=== PATIENT | female | born 2000 | race Caucasian/White ===

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

== ENCOUNTER 2020-09-03 10:44 | Emergency (ER) | payer OTHER ==
--- NOTE | 2020-09-03 10:49 | EDM.PDOC ---
ED HPI GENERAL MEDICAL PROBLEM - General Stated Complaint: NOT FEELING WELL Time Seen by Provider: 09/03/20 10:46 Source of Information: Reports: Patient History Limitations: Reports: No Limitations - History of Present Illness INITIAL COMMENTS - FREE TEXT/NARRATIVE: HISTORY AND PHYSICAL: History of present illness: Patient is a 20-year-old female who presents to the emergency room with complaints of body aches, sinus congestion/pressure, bilateral ear pain and generally feeling unwell over the past 5 days. Patient denies any fever, chills, change in vision, syncope or near syncope. Denies any chest pain, back pain, shortness of breath or cough. Denies any abdominal pain, nausea, vomiting, diarrhea, constipation or dysuria. No concerns of . Patient has been eating and drinking appropriately. Review of systems: As per history of present illness and below otherwise all systems reviewed and negative. Past medical history: As per history of present illness and as reviewed below otherwise noncontributory. Surgical history: As per history of present illness and as reviewed below otherwise noncontributory. Social history: See social history for further information Family history: As per history of present illness and as reviewed below otherwise noncontributory. Physical exam: General: Well developed and well nourished. Alert and orientated x 3. Nontoxic in appearance and in no acute distress. Vital signs are stable and have been reviewed by me. Nursing notes were reviewed. HEENT: Atraumatic, normocephalic, pupils equal and reactive bilaterally, negative for conjunctival pallor or scleral icterus, mucous membranes moist, TMs normal bilaterally, throat clear, neck supple, nontender, trachea midline. No drooling or trismus noted. No meningeal signs. No hot potato voice noted. Lungs: Clear to auscultation, breath sounds equal bilaterally, chest nontender. Normal work of breathing, no accessory muscles used. Heart: S1S2, regular rate and rhythm without overt murmur Abdomen: Soft, nondistended, nontender. Skin: Intact, warm, dry. No lesions or rashes noted. Hematologic: No petechiae or purpra. Mucosa appropriate color and normal nail bed color and refill. Extremities: Atraumatic, moves all extremities per self without difficulty or deficits, negative for cords or calf pain. Neurovascular unremarkable. Neuro: Awake, alert, oriented. Cranial nerves II through XII unremarkable. Cerebellum unremarkable. Motor and sensory unremarkable throughout. Exam nonfocal. Psychiatric: Mood and affect are appropriate. Normal thought process. Answering questions appropriately. Notes: Positive for smith virus. I have spoken with the patient/caregiver and discussed today's findings, in addition to providing specific details for plan of care. Reassessment at the time of disposition demonstrates that the patient is in no acute distress. The patient has remained stable throughout the entire ED visit and is without objective evidence for acute process requiring urgent intervention or hospitalization. The patient is stable for discharge, counseling was provided and we discussed in great detail signs and symptoms that would prompt them to return to the Emergency Department. Medication, follow up and supportive care measures were reviewed and discussed. Voices understanding and is agreeable to plan of care. Denies any further questions or concerns at this time. Diagnostics: COVID Therapeutics: None Prescription: None Impression: COVID-19 Plan: 1. Your COVID-19 screening is positive. That means you do have the coronavirus and are considered contagious. Your vital signs and oxygen saturation are well enough that you were able to monitor your symptoms at home. Continue to monitor for trouble breathing, new confusion or inability to arouse, bluish lips or face or any of the other symptoms we discussed -if this occurs please return to the emergency room. 2. Please self quarantine over the next 2 weeks. Inform any persons that you have been in contact with since you started becoming symptomatic that you have tested positive; they should be made aware and take the appropriate steps as needed. 3. You can take NyQuil during the evening to help get a restful night sleep. 4. You may alternate Tylenol and ibuprofen as needed for pain and fever management. 5. The [facility] will be calling you and following up with you. The [place] COVID 19 Hotline phone number , They are open Monday - Monday 7am - 7pm. Follow up with your primary care provider for re-evaluation and re-testing after the 2 week quarantine and discuss when you should be seen. Definitive disposition and diagnosis as appropriate pending reevaluation and review of above. 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 Musculoskeletal History: Reports: None Neurological History: Reports: None Psychiatric History: Reports: None Endocrine/Metabolic History: Reports: None Hematologic History: Reports: None Immunologic History: Reports: None Oncologic (Cancer) History: Reports: None Dermatologic History: Reports: None - Infectious Disease History Infectious Disease History: Reports: None - Past Surgical History Head Surgeries/Procedures: Reports: None Social & Family History - Family History Family Medical History: Noncontributory - Caffeine Use Caffeine Use: Reports: Coffee ED ROS ENT - Review of Systems Review Of Systems: Comprehensive ROS is negative, except as noted in HPI. ED EXAM, ENT - Physical Exam Exam: See Below (See dictation) Course - Vital Signs Last Recorded V/S: Last Vital Signs Temp 97.3 F 09/03/20 11:22 Pulse 82 09/03/20 11:22 Resp 16 09/03/20 11:22 BP 104/66 09/03/20 11:22 Pulse Ox 98 09/03/20 11:22 - Orders/Labs/Meds Orders: Active Orders 24 hr Category Date Time Status CORONAVIRUS COVID-19 PCR PHL Stat Lab 09/03/20 11:10 Received Labs: Laboratory Tests 09/03/20 Range/Units 11:10 SARS CoV-2 RNA Rapid GERONIMO POSITIVE H (NEGATIVE) Departure - Departure Time of Disposition: 11:45 Disposition: Home, Self-Care 01 Clinical Impression: COVID-19 - Discharge Information Instructions: COVID-19 Referrals: PCP,None [Primary Care Provider] - Forms: ED Department Discharge Additional Instructions: The following information is given to patients seen in the emergency department who are being discharged to home. This information is to outline your options for follow-up care. We provide all patients seen in our emergency department with a follow-up referral. The need for follow-up, as well as the timing and circumstances, are variable depending upon the specifics of your emergency department visit. If you don't have a primary care physician on staff, we will provide you with a referral. We always advise you to contact your personal physician following an emergency department visit to inform them of the circumstance of the visit and for follow-up with them and/or the need for any referrals to a consulting specialist. The emergency department will also refer you to a specialist when appropriate. This referral assures that you have the opportunity for follow-up care with a specialist. All of these measure are taken in an effort to provide you with optimal care, which includes your follow-up. Under all circumstances we always encourage you to contact your private physician who remains a resource for coordinating your care. When calling for follow-up care, please make the office aware that this follow-up is from your recent emergency room visit. If for any reason you are refused follow-up, please contact the [facility] Emergency Department at and asked to speak to the emergency department charge nurse. [facility] [address] [place] [id number] [address] [address] Thank you for choosing the [facility] emergency department in [place] for your medical needs today. It was a pleasure caring for you. Today you were seen in the emergency department for sinus pressure/headache. 1. Your COVID-19 screening is positive. That means you do have the coronavirus and are considered contagious. Your vital signs and oxygen saturation are well enough that you were able to monitor your symptoms at home. Continue to monitor for trouble breathing, new confusion or inability to arouse, bluish lips or face or any of the other symptoms we discussed -if this occurs please return to the emergency room. 2. Please self quarantine over the next 2 weeks. Inform any persons that you have been in contact with since you started becoming symptomatic that you have tested positive; they should be made aware and take the appropriate steps as needed. 3. You can take NyQuil during the evening to help get a restful night sleep. 4. You may alternate Tylenol and ibuprofen as needed for pain and fever management. 5. The [facility] will be calling you and following up with you. The [place] COVID 19 Hotline phone number , They are open Monday - Monday 7am - 7pm. Follow up with your primary care provider for re-evaluation and re-testing after the 2 week quarantine and discuss when you should be seen. Sepsis Event Note (ED) - Focused Exam Vital Signs: Vital Signs Temp Pulse Resp BP Pulse Ox 09/03/20 11:22 97.3 F 82 16 104/66 98 - My Orders Last 24 Hours: My Active Orders 09/03/20 11:10 CORONAVIRUS COVID-19 PCR [facility] Stat - Assessment/Plan Last 24 Hours: My Active Orders 09/03/20 11:10 CORONAVIRUS COVID-19 PCR PHL Stat
[2020-09-03 14:33] VITALS: BP 114/77; PULSE 92
== END 2020-09-03 11:50 | disposition home or self-care (01) ==
LOC: MW.ED 10:44
DX: U07.1 COVID-19 (principal)
CPT/HCPCS: 99282; 99283; U0002

== ENCOUNTER 2021-09-23 10:13 | Emergency (ER) | payer OTHER ==
[2021-09-23] MEDS ORDERED: Ketorolac 30 MG/ML SDV IVPUSH ONE (10:29)
[2021-09-23] MEDS ORDERED: Ondansetron 4 MG/2 ML SDV IVPUSH ONE (10:29)
--- NOTE | 2021-09-23 11:07 | EDM.PDOC ---
ED HPI GENERAL MEDICAL PROBLEM - General Chief Complaint: Headache Stated Complaint: vomiting and a headache for 2 weeks now Time Seen by Provider: 09/23/21 10:20 Source of Information: Reports: Patient History Limitations: Reports: No Limitations - History of Present Illness INITIAL COMMENTS - FREE TEXT/NARRATIVE: HISTORY AND PHYSICAL: History of present illness: Patient is a 21-year-old female who presents to the emergency room with complaints of generalized headache, nausea, vomiting and upset stomach x2 weeks. She states this does feel similar to when she had COVID-19 a year ago. She has tried [id number] Tylenol for headache, has not improved symptoms. Patient denies any fever, chills, change in vision, syncope or near syncope. Denies any chest pain, back pain, shortness of breath or cough. Denies any diarrhea, constipation or dysuria. Has not noted any blood in urine or stool. Patient has been eating and drinking appropriately. No recent travel or sick contacts. Review of systems: As per history of present illness and below otherwise all systems reviewed and negative. Past medical history: As per history of present illness and as reviewed below otherwise noncontributory. Surgical history: As per history of present illness and as reviewed below otherwise noncontributory. Social history: See social history for further information Family history: As per history of present illness and as reviewed below otherwise noncontributory. Physical exam: General: Well developed and well nourished 21-year-old female. Alert and orientated x 3. Nontoxic in appearance and in no acute distress. Vital signs are stable and have been reviewed by me. Nursing notes were reviewed. HEENT: Atraumatic, normocephalic, pupils equal and reactive bilaterally, negative for conjunctival pallor or scleral icterus, mucous membranes moist, TMs normal bilaterally, throat clear, neck supple, nontender, trachea midline. No drooling or trismus noted. No meningeal signs. No hot potato voice noted. Lungs: Clear to auscultation bilaterally. No wheezes, rales, or rhonchi. Chest nontender. Normal work of breathing, no accessory muscles used. Heart: S1S2, regular rate and rhythm without overt murmur, gallops, or rubs. No JVD. No peripheral edema Abdomen: Soft, nondistended, nontender. Normoactive bowel sounds. Negative for masses or costovertebral tenderness. Skin: Intact, warm, dry. No lesions or rashes noted. Hematologic: No petechiae or purpra. Mucosa appropriate color and normal nail bed color and refill. Extremities: Atraumatic, moves all extremities per self without difficulty or deficits, negative for cords or calf pain. Neurovascular unremarkable. Neuro: Awake, alert, oriented. Cranial nerves II through XII unremarkable. Cerebellum unremarkable. Motor and sensory unremarkable throughout. Exam nonfocal. Psychiatric: Mood and affect are appropriate. Normal thought process. Answering questions appropriately. Please note that the patient was seen and evaluated during the 2019 SARS-CoV-2 novel coronavirus pandemic period. Community viral transmission is ongoing at time of this encounter and the emergency department is operating under pandemic response procedures. Medical Decision Making: Patient is a 21-year-old female who presents to the emergency room with complaints of headache, nausea, vomiting and upset stomach over the past 2 weeks. She states symptoms do feel similar to when she had COVID-19 approximately 1 year ago. She has been trying Tylenol [id number] without much relief. Physical exam shows a nonacute abdomen, nontender to touch. Symptoms appear to be related to migraine headache. We will do basic lab work, COVID-19 testing. She does not describe this headache as the worst headache of her life, declines wanting a head CT. Lab work is unremarkable. Her significant other who is at bedside states that their heater did go out last week and is concerned about carbon monoxide poisoning as they have been using a small space heater to keep it warm. We will add carboxyhemoglobin onto labs although suspicion is low. Carboxyhemoglobin is negative. Headache is somewhat better. She now does mention that she has not been using her control over the past 2 weeks and feels this could be hormonal fluctuation. We will give her a as needed medication for migraines if this persists. I have talked with the patient about today's findings, in addition to providing specific details for plan of care. Reassessment at the time of disposition demonstrates that the patient is in no acute distress. The patient is stable for discharge, counseling was provided and we discussed in great detail signs and symptoms that would prompt them to return to the Emergency Department. Medication, follow up and supportive care measures were reviewed and discussed. Voices understanding and is agreeable to plan of care. Denies any further questions or concerns at this time. Diagnostics: CBC, CMP, UA, urine , carboxyhemoglobin, COVID-19 Therapeutics: IV fluid, Zofran, Toradol, Ativan Prescription: Butalbital No. 8 Impression: Migraine Headache Plan: 1. You were evaluated today on an emergent basis. Your lab work is within normal limits. Please rest the remainder of the day. You can take the Butabutol as directed. This medication may cause drowsiness, so do not take it while driving or needing to be functioning outside the house. 2. You can alternate Tylenol and ibuprofen as needed for pain and fever management. 3. We encourage you to follow up with your primary care provider and/or recommended specialist in the next few days for re-evaluation and further care/management. 4. If your symptoms should worsen, new symptoms develop or any of the signs and symptoms we discussed should arise please return to the emergency room or call 911 (if needed). Definitive disposition and diagnosis as appropriate pending reevaluation and review of above. headache Pain Score (Numeric/FACES): 8 - Related Data Allergies Allergy/AdvReac Type Severity Reaction Status Date / Time No Known Allergies Allergy Verified 09/23/21 10:29 Home Meds: Home Meds Control Pills 1 tab PO DAILY 08/26/17 [History] Butalbit/Acetamin/Caff/Codeine [Ussblp-Buvk-Gznfuygmhkg-Codein] 1 each PO Q4HR PRN #8 capsule 09/23/21 [Rx] Ondansetron [Zofran ODT] 4 mg PO Q6H PRN #8 tab.dis 09/23/21 [Rx] Past Medical History - Past Health History Medical/Surgical History: Denies Medical/Surgical History HEENT History: Reports: None Cardiovascular History: Reports: None Respiratory History: Reports: None Gastrointestinal History: Reports: None Genitourinary History: Reports: None [employer] History: Reports: None Musculoskeletal History: Reports: None Neurological History: Reports: None Psychiatric History: Reports: None Endocrine/Metabolic History: Reports: None Hematologic History: Reports: None Immunologic History: Reports: None Oncologic (Cancer) History: Reports: None Dermatologic History: Reports: None - Infectious Disease History Infectious Disease History: Reports: None - Past Surgical History Head Surgeries/Procedures: Reports: None Social & Family History - Family History Family Medical History: No Pertinent Family History - Tobacco Use Tobacco Use Status *Q: Never Tobacco User Second Hand Smoke Exposure: No - Caffeine Use Caffeine Use: Reports: Coffee - Recreational Drug Use Recreational Drug Use: No ED ROS GENERAL - Review of Systems Review Of Systems: Comprehensive ROS is negative, except as noted in HPI. - Physical Exam Exam: See Below (See dictation) Course - Vital Signs Last Recorded V/S: Last Vital Signs Temp 97 F 09/23/21 12:43 Pulse 66 09/23/21 12:43 Resp 15 09/23/21 12:43 BP 93/53 L 09/23/21 12:43 Pulse Ox 99 09/23/21 12:43 - Orders/Labs/Meds Orders: Active Orders 24 hr Category Date Time Status CULTURE URINE [MREF] Stat Lab 09/23/21 10:40 Received Labs: Laboratory Tests 09/23/21 09/23/21 09/23/21 Range/Units 10:40 10:40 10:49 WBC 9.61 (4.0-11.0) K/uL RBC 4.81 (4.30-5.90) M/uL Hgb 14.3 (12.0-16.0) g/dL Hct 42.0 (36.0-46.0) % MCV 87.3 (80.0-98.0) fL MCH 29.7 (27.0-32.0) pg MCHC 34.0 (31.0-37.0) g/dL RDW Std Deviation 41.0 (28.0-62.0) fl RDW Coeff of Lina 13 (11.0-15.0) % Plt Count 303 (150-400) K/uL MPV 10.30 (7.40-12.00) fL Neut % (Auto) 71.7 (48.0-80.0) % Lymph % (Auto) 21.5 (16.0-40.0) % [place] % (Auto) 5.3 (0.0-15.0) % Eos % (Auto) 1.1 (0.0-7.0) % Baso % (Auto) 0.4 (0.0-1.5) % Neut # (Auto) 6.9 H (1.4-5.7) K/uL Lymph # (Auto) 2.1 (0.6-2.4) K/uL [place] # (Auto) 0.5 (0.0-0.8) K/uL Eos # (Auto) 0.1 (0.0-0.7) K/uL Baso # (Auto) 0.0 (0.0-0.1) K/uL Nucleated RBC % 0.0 /100WBC Nucleated RBCs # 0 K/uL ABG Carboxyhemoglobin (0-15) % Sodium (136-145) mmol/L Potassium (3.5-5.1) mmol/L Chloride (98-107) mmol/L Carbon Dioxide (21.0-32.0) mmol/L BUN (7.0-18.0) mg/dL Creatinine (0.6-1.0) mg/dL Est Cr Clr Drug Dosing mL/min Estimated GFR (MDRD) ml/min Glucose (74-106) mg/dL Calcium (8.5-10.1) mg/dL Total Bilirubin (0.2-1.0) mg/dL AST (15-37) IU/L ALT (14-63) IU/L Alkaline Phosphatase (46-116) U/L Total Protein (6.4-8.2) g/dL Albumin (3.4-5.0) g/dL Globulin (2.6-4.0) g/dL Albumin/Globulin Ratio (0.9-1.6) Urine Color YELLOW Urine Appearance CLEAR Urine pH 5.5 (5.0-8.0) Ur Specific [place] >= 1.030 (1.001-1.035) Urine Protein NEGATIVE (NEGATIVE) mg/dL Urine Glucose (UA) NEGATIVE (NEGATIVE) mg/dL Urine Ketones NEGATIVE (NEGATIVE) mg/dL Urine Occult Blood NEGATIVE (NEGATIVE) Urine Nitrite NEGATIVE (NEGATIVE) Urine Bilirubin NEGATIVE (NEGATIVE) Urine Urobilinogen 0.2 (<2.0) EU/dL Ur Leukocyte Esterase SMALL H (NEGATIVE) Urine RBC 0-2 (0-2/HPF) Urine WBC 1-3 (0-5/HPF) Ur Epithelial Cells MODERATE (NONE-FEW) Urine Bacteria FEW (NEGATIVE) Urine HCG, Qual NEGATIVE (NEGATIVE) SARS-CoV-2 RNA (GERONIMO) (NEGATIVE) 09/23/21 09/23/21 09/23/21 Range/Units 10:49 10:59 11:28 WBC (4.0-11.0) K/uL RBC (4.30-5.90) M/uL Hgb (12.0-16.0) g/dL Hct (36.0-46.0) % MCV (80.0-98.0) fL MCH (27.0-32.0) pg MCHC (31.0-37.0) g/dL RDW Std Deviation (28.0-62.0) fl RDW Coeff of Lina (11.0-15.0) % Plt Count (150-400) K/uL MPV (7.40-12.00) fL Neut % (Auto) (48.0-80.0) % Lymph % (Auto) (16.0-40.0) % [place] % (Auto) (0.0-15.0) % Eos % (Auto) (0.0-7.0) % Baso % (Auto) (0.0-1.5) % Neut # (Auto) (1.4-5.7) K/uL Lymph # (Auto) (0.6-2.4) K/uL [place] # (Auto) (0.0-0.8) K/uL Eos # (Auto) (0.0-0.7) K/uL Baso # (Auto) (0.0-0.1) K/uL Nucleated RBC % /100WBC Nucleated RBCs # K/uL ABG Carboxyhemoglobin 1.6 (0-15) % Sodium 139 (136-145) mmol/L Potassium 3.6 (3.5-5.1) mmol/L Chloride 102 (98-107) mmol/L Carbon Dioxide 25.7 (21.0-32.0) mmol/L BUN 10 (7.0-18.0) mg/dL Creatinine 0.9 (0.6-1.0) mg/dL Est Cr Clr Drug Dosing 76.89 mL/min Estimated GFR (MDRD) > 60.0 ml/min Glucose 99 (74-106) mg/dL Calcium 8.8 (8.5-10.1) mg/dL Total Bilirubin 1.0 (0.2-1.0) mg/dL AST 24 (15-37) IU/L ALT 37 (14-63) IU/L Alkaline Phosphatase 99 (46-116) U/L Total Protein 8.1 (6.4-8.2) g/dL Albumin 3.8 (3.4-5.0) g/dL Globulin 4.3 H (2.6-4.0) g/dL Albumin/Globulin Ratio 0.9 (0.9-1.6) Urine Color Urine Appearance Urine pH (5.0-8.0) Ur Specific [place] (1.001-1.035) Urine Protein (NEGATIVE) mg/dL Urine Glucose (UA) (NEGATIVE) mg/dL Urine Ketones (NEGATIVE) mg/dL Urine Occult Blood (NEGATIVE) Urine Nitrite (NEGATIVE) Urine Bilirubin (NEGATIVE) Urine Urobilinogen (<2.0) EU/dL Ur Leukocyte Esterase (NEGATIVE) Urine RBC (0-2/HPF) Urine WBC (0-5/HPF) Ur Epithelial Cells (NONE-FEW) Urine Bacteria (NEGATIVE) Urine HCG, Qual (NEGATIVE) SARS-CoV-2 RNA (GERONIMO) NEGATIVE (NEGATIVE) Meds: Medications Discontinued Medications Generic Name Dose Route Start Last Admin Trade Name Freq PRN Reason Stop Dose Admin Ketorolac Tromethamine 30 mg 09/23/21 10:29 09/23/21 10:57 Ketorolac 30 Mg/Ml Sdv IVPUSH 09/23/21 10:30 30 mg ONETIME ONE Administration Lorazepam 1 mg 09/23/21 11:13 09/23/21 12:04 Lorazepam 2 Mg/Ml Sdv IVPUSH 09/23/21 11:14 1 mg ONETIME ONE Administration Ondansetron HCl 4 mg 09/23/21 10:29 09/23/21 10:57 Ondansetron 4 Mg/2 Ml Sdv IVPUSH 09/23/21 10:30 4 mg ONETIME ONE Administration Departure - Departure Time of Disposition: 12:30 Disposition: Home, Self-Care 01 Clinical Impression: Migraine - Discharge Information Prescriptions: Butalbit/Acetamin/Caff/Codeine [Laidfv-Mwge-Vmrtdzmuuck-Codein] 1 each PO Q4HR PRN #8 capsule PRN Reason: Headache/Pain Ondansetron [Zofran ODT] 4 mg PO Q6H PRN #8 tab.dis PRN Reason: Nausea Instructions: Migraine Headache, [id number] Referrals: PCP,None [Primary Care Provider] - Forms: ED Department Discharge Additional Instructions: The following information is given to patients seen in the emergency department who are being discharged to home. This information is to outline your options for follow-up care. We provide all patients seen in our emergency department with a follow-up referral. The need for follow-up, as well as the timing and circumstances, are variable depending upon the specifics of your emergency department visit. If you don't have a primary care physician on staff, we will provide you with a referral. We always advise you to contact your personal physician following an emergency department visit to inform them of the circumstance of the visit and for follow-up with them and/or the need for any referrals to a consulting specialist. The emergency department will also refer you to a specialist when appropriate. This referral assures that you have the opportunity for follow-up care with a specialist. All of these measure are taken in an effort to provide you with optimal care, which includes your follow-up. Under all circumstances we always encourage you to contact your private physician who remains a resource for coordinating your care. When calling for follow-up care, please make the office aware that this follow-up is from your recent emergency room visit. If for any reason you are refused follow-up, please contact the [facility] Emergency Department at and asked to speak to the emergency department charge nurse. [facility] [address] [place] [id number] [address] Thank you for choosing the [facility] emergency department in [place] for your medical needs today. It was a pleasure caring for you. Today you were seen in the emergency department for migraine headache. Your prescription was electronically sent to: [place] pharmacy 1. You were evaluated today on an emergent basis. Your lab work is within normal limits. Please rest the remainder of the day. You can take the Butalbital as directed. This medication may cause drowsiness, so do not take it while driving or needing to be functioning outside the house. 2. You can alternate Tylenol and ibuprofen as needed for pain and fever management. 3. We encourage you to follow up with your primary care provider and/or recommended specialist in the next few days for re-evaluation and further care/management. 4. If your symptoms should worsen, new symptoms develop or any of the signs and symptoms we discussed should arise please return to the emergency room or call 911 (if needed). Sepsis Event Note (ED) - Evaluation Sepsis Screening Result: No Definite Risk - Focused Exam Vital Signs: Vital Signs Temp Pulse Resp BP Pulse Ox 09/23/21 12:43 97 F 66 15 93/53 L 99 09/23/21 11:31 63 15 98/56 L 99 09/23/21 10:30 82 15 96/58 L 94 L - My Orders Last 24 Hours: My Active Orders 09/23/21 10:40 CULTURE URINE [MREF] Stat - Assessment/Plan Last 24 Hours: My Active Orders 09/23/21 10:40 CULTURE URINE [MREF] Stat
[2021-09-23] MEDS ORDERED: LORazepam 2 MG/ML SDV IVPUSH ONE (11:13)
[2021-09-23 11:35] LABS: BLOOD UREA NITROGEN,BUN 10 mg/dL (7.0-18.0); CARBON DIOXIDE,CO2 25.7 mmol/L (21.0-32.0); CHLORIDE,CL 102 mmol/L (98-107); GLUCOSE RANDOM 99 mg/dL (74-106); POTASSIUM,K 3.6 mmol/L (3.5-5.1); SODIUM,NA 139 mmol/L (136-145)
[2021-09-23 12:44] VITALS: BP 93/53; PULSE 66
== END 2021-09-23 12:47 | disposition home or self-care (01) ==
LOC: MW.ED 10:13
DX: G43.909 Migraine, unspecified, not intractable, without status migrainosus (principal); Z20.822 Contact with and (suspected) exposure to COVID-19
CPT/HCPCS: 36415; 80053; 81001; 81025; 82375; 85025; 87086; 87635; 96374; 96375; 99284; J1885; J2060; J2405; U0002

== ENCOUNTER 2023-01-27 21:39 | Emergency (ER) | payer OTHER, BC ==
[2023-01-27] MEDS ORDERED: Ketorolac 30 MG/ML SDV IVPUSH ONE (22:07)
[2023-01-27 22:24] LABS: CARBON DIOXIDE,CO2 25.5 mmol/L (21.0-32.0); POTASSIUM,K 3.6 mmol/L (3.5-5.1)
[2023-01-28] MEDS ORDERED: Acetaminophen/HYDROcodone 325-5 MG Tab PO ONE
[2023-01-28 00:15] VITALS: BP 110/73; PULSE 74
== END 2023-01-28 00:16 | disposition home or self-care (01) ==
LOC: MW.ED 21:39
DX: R10.32 Left lower quadrant pain (principal)
CPT/HCPCS: 36415; 74176; 76830; 80053; 81003; 85025; 96374; 99284; A9270; J1885

== ENCOUNTER 2025-01-10 19:59 | Emergency (ER) | payer BC, OTHER ==
[2025-01-10] MEDS: Sodium Chloride 0.9% 1,000 ML IV ONE (21:55)
[2025-01-10] MEDS: Ketorolac 30 MG/ML SDV IVPUSH ONE (21:56)
[2025-01-10] MEDS: Albuterol/Ipratropium 3.0-0.5 MG/3 ML Neb Soln NEB ONE (21:56)
[2025-01-10 22:08] LABS: BASOPHILS ABSOLUTE AUTO 0.04 K/uL (0.00-0.20); BASOPHILS PERCENT AUTO 0.7 % (0.0-1.0); EOSINOPHILS ABSOLUTE AUTO 0.09 K/uL (0.00-0.45); EOSINOPHILS PERCENT AUTO 1.6 % (0.0-6.0); HEMATOCRIT 36.2 % (37.0-47.0); HEMOGLOBIN 12.4 g/dL (12.0-16.0); LYMPHOCYTES ABSOLUTE AUTO 2.19 K/uL (1.00-4.80); MEAN CORPUSCULAR HEMOGLOBIN 28.7 pg (28.0-32.0); MEAN CORPUSCULAR HGB CONC 34.3 g/dL (32.0-36.0); MEAN CORPUSCULAR VOLUME 83.8 fL (83.0-99.0); MEAN PLATELET VOLUME 10.1 fL (9.4-12.3); MONOCYTES ABSOLUTE AUTO 0.61 K/uL (0.00-0.80); MONOCYTES PERCENT AUTO 10.6 % (0.0-8.0); NEUTROPHILS ABSOLUTE AUTO 2.84 K/uL (1.80-7.70); NEUTROPHILS PERCENT AUTO 49.1 % (41.0-71.0); PLATELET COUNT,PLT 236 K/uL (150-400); RED BLOOD CELL COUNT 4.32 M/uL (4.10-5.30); WHITE BLOOD CELL COUNT,WBC 5.77 K/uL (3.9-11.3)
[2025-01-10 22:31] LABS: A/G RATIO 0.8 (0.9-1.6); ALBUMIN 3.2 g/dL (3.4-5.0); BILIRUBIN DIRECT 0.1 mg/dL (0.0-0.5); BILIRUBIN INDIRECT 0.3; BILIRUBIN TOTAL 0.4 mg/dL (0.2-1.0); CALCIUM 8.9 mg/dL (8.5-10.1); CARBON DIOXIDE,CO2 26.4 mmol/L (21.0-32.0); CREATININE 0.9 mg/dL (0.6-1.0); EST CRCL DRUG DOSING (CG) 64.84 mL/min; POTASSIUM,K 3.8 mmol/L (3.5-5.1); PROTEIN TOTAL,TP 7.3 g/dL (6.4-8.2)
[2025-01-10] MEDS: cefTRIAXone 2 GM in Sodium Chloride 0.9% 50 ML IV ONE (23:39)
[2025-01-10] MEDS: Azithromycin 500 MG in Sodium Chloride 0.9% 250 ML IV ONE (23:49)
[2025-01-11] MEDS: Ondansetron 4 MG/2 ML SDV IVPUSH ONE (00:13)
[2025-01-11 00:43] VITALS: BP 91/58; PULSE 98
== END 2025-01-11 01:12 | disposition home or self-care (01) ==
LOC: MW.ED 19:59
DX: J18.9 Pneumonia, unspecified organism (principal); Z75.8 Other problems related to medical facilities and other health care
CPT/HCPCS: 36415; 71045; 80048; 80076; 85025; 87428; 87651; 93005; 96361; 96365; 96367; 96375; 99285; J0456; J0696; J1885; J2405; J3490; J7030; J7050; 93010; 99283; J7620-GY

== ENCOUNTER 2025-09-29 04:10 | Emergency (ER) | payer BC, OTHER ==
[2025-09-29 04:43] LABS: BASOPHILS ABSOLUTE AUTO 0.02 K/uL (0.00-0.20); BASOPHILS PERCENT AUTO 0.2 % (0.0-1.0); EOSINOPHILS ABSOLUTE AUTO 0.10 K/uL (0.00-0.45); EOSINOPHILS PERCENT AUTO 1.0 % (0.0-6.0); IMMATURE GRAN ABSOLUTE AUTO 0.03 K/uL (0.00-0.05); IMMATURE GRAN PERCENT AUTO 0.3 % (0.0-0.4); LYMPHOCYTES ABSOLUTE AUTO 2.37 K/uL (1.00-4.80); LYMPHOCYTES PERCENT AUTO 22.9 % (24.0-44.0); MEAN PLATELET VOLUME 10.0 fL (9.4-12.3); MONOCYTES ABSOLUTE AUTO 0.88 K/uL (0.00-0.80); MONOCYTES PERCENT AUTO 8.5 % (0.0-8.0); NEUTROPHILS ABSOLUTE AUTO 6.95 K/uL (1.80-7.70); NEUTROPHILS PERCENT AUTO 67.1 % (41.0-71.0); NRBC ABSOLUTE 0.00 K/uL (0.00-0.02); NRBC PERCENT 0.0 /100WBC (0.0-0.2); PLATELET COUNT,PLT 261 K/uL (150-400); RED BLOOD CELL COUNT 3.92 M/uL (4.10-5.30); WHITE BLOOD CELL COUNT,WBC 10.35 K/uL (3.9-11.3)
[2025-09-29 05:00] LABS: A/G RATIO 0.6 (0.9-1.6); ALANINE AMINOTRANSFERASE,ALT 18 IU/L (14-63); ASPARTATE AMNIOTRANSFERASE,AST 16 IU/L (15-37); BILIRUBIN TOTAL 0.4 mg/dL (0.2-1.0); BLOOD UREA NITROGEN,BUN 4 mg/dL (7.0-18.0); CHLORIDE,CL 105 mmol/L (98-107); CREATININE 0.7 mg/dL (0.6-1.0); EST CRCL DRUG DOSING (CG) 91.09 mL/min; GLUCOSE RANDOM 101 mg/dL (74-106); POTASSIUM,K 3.5 mmol/L (3.5-5.1); PROTEIN TOTAL,TP 7.1 g/dL (6.4-8.2); SODIUM,NA 140 mmol/L (136-145)
[2025-09-29 05:06] LABS: ESTIMATED GFR 121 mL/min (>60)
[2025-09-29 05:10] LABS: CARBON DIOXIDE,CO2 23.5 mmol/L (21.0-32.0)
[2025-09-29 06:12] LABS: GLUCOSE,URINE >=1000 mg/dL (NEGATIVE); OCCULT BLOOD,URINE NEGATIVE (NEGATIVE)
[2025-09-29 06:16] LABS: APPEARANCE,URINE HAZY
[2025-09-29 06:29] LABS: EPITHELIAL CELLS,URINE MODERATE (NONE-FEW)
[2025-09-29 06:53] VITALS: BP 107/75; PULSE 92
== END 2025-09-29 06:59 | disposition home or self-care (01) ==
LOC: MW.ED 04:10
DX: O21.9 Vomiting of pregnancy, unspecified (principal); Z3A.26 26 weeks gestation of pregnancy; Z75.3 Unavailability and inaccessibility of health-care facilities; Z79.899 Other long term (current) drug therapy
CPT/HCPCS: 36415; 80053; 81001; 83690; 84484; 84702; 85025; 93005; 96360; 96361; 99285; J7030; J7042; 93010; 99284